=== PATIENT | male | born 1985 | race Caucasian/White ===

== ENCOUNTER 2017-04-16 03:44 | Emergency (ER) | payer OTHER ==
--- NOTE | ~2017-04-16 | CR142 ---
[facility] A Service of [facility] & [facility] RADIOLOGY TEXT RESULTS PATIENT: LORA COUCH LOCATION: SED : [birth year] UNIT #: [id number] AGE: [address]: Garrett Flor MD SEX: M ORDER DR: [id number] [place] [id number] E MR#: [id number] Acc #: [id number] NAME: LORA COUCH : 1985 SEX: M STUDY DATE/TIME: 04/16/2017 4:10 UNIT: SED ROOM: STUDY DESCRIPTION: CR Hand Min 3 Views Rt Attending Physician: Garrett Flor M.D. Ordering Physician: Garrett Flor M.D. Primary Care Physician: Primary Care Physician No MEDICAL IMAGING REPORT This report is preliminary unless electronic signature is present. EXAM Right hand INDICATION Right hand pain after cutting hand on glass tonight. FINDINGS Three views of the right hand were obtained. There is a bandage around the thumb. There is no fracture or foreign body visible. IMPRESSION Normal right hand. Dictated by... Ti Jones M.D. THIS IS AN ELECTRONICALLY VERIFIED REPORT Ti Jones M.D. at 04/16/2017 5:53 AM Delroy TD: 04/16/2017 04:56 JOB #: [id number] MEDICAL IMAGING REPORT Page 1 of 1
[~2017-04-16 03:44] MED LIST: NO MEDICATIONS
== END 2017-04-16 06:04 | disposition home or self-care (01) ==
LOC: SED 03:44
DX: S66.821A Laceration of other specified muscles, fascia and tendons at wrist and hand level, right hand, initial encounter (principal); F17.200 Nicotine dependence, unspecified, uncomplicated; W25.XXXA Contact with sharp glass, initial encounter; Y92.828 Other wilderness area as the place of occurrence of the external cause; Z23 Encounter for immunization
CPT/HCPCS: 12002; 73130; 90471; 90715; 99283